=== PATIENT | male | born 1995 | race Caucasian/White ===

== ENCOUNTER 2016-09-20 20:57 | Emergency (ER) | payer SELFPAY ==
[~2016-09-20] VITALS: Ht 175.3 cm; Wt 75.0 kg
[2016-09-20] MEDS ORDERED: IBUPROFEN 200 MG TABLET ONE (21:31)
[2016-09-20 21:44] VITALS: BP 145/79
[2016-09-20] MEDS ORDERED: IBUPROFEN 200 MG TABLET PO ONE (22:00)
== END 2016-09-20 21:59 | disposition home or self-care (01) ==
LOC: EDBD 20:57 → ED 21:53
DX: S43.085A Other dislocation of left shoulder joint, initial encounter (principal); X58.XXXA Exposure to other specified factors, initial encounter; Y93.66 Activity, soccer; Y99.8 Other external cause status; Y92.322 Soccer field as the place of occurrence of the external cause
CPT/HCPCS: 23650